=== PATIENT | female | born 1990 | race Caucasian/White ===

== ENCOUNTER 2024-03-25 10:45 | Outpatient (RCR) | payer OTHER, SELFPAY ==
[2024-03-25 13:32] VITALS: BMI 32.3
== END 2024-06-09 10:21 | disposition home or self-care (01) ==
LOC: ANHDMC 10:45
PROVIDERS: PCP Nurse Practitioner Family; Visit Provider Nurse Practitioner Family
DX: E66.9 Obesity, unspecified (principal); Z71.3 Dietary counseling and surveillance
CPT/HCPCS: 97802